=== PATIENT | female | born 1995 | race Caucasian/White ===

== ENCOUNTER 2016-09-28 22:58 | Emergency (ER) | payer SELFPAY ==
[~2016-09-28] VITALS: Ht 149.9 cm; Wt 71.5 kg
[2016-09-28 23:06] VITALS: Ht 149.9 cm; Wt 71.5 kg
[2016-09-29] MEDS ORDERED: CIPR500T4 PO (01:25)
[2016-09-29] MEDS ORDERED: ELEC100080 PO (01:26)
--- NOTE | 2016-09-29 01:30 | ERD ---
ER Documentation Chief Complaint Date/Time DATE: 09/29/16 TIME: 01:28 Chief Complaint abdominal pain with N/V/D and chills x 1 week. HPI This is a 21-year-old female presents to the ER with nausea vomiting and diarrhea for the last week. Nausea and vomiting have resolved and patient now only has diarrhea. Patient was feeling better however today she decided to have a burrito which she is on it and she got diarrhea again. Patient denies any fevers or chills patient denies any urinary frequency or dysuria. Her mom recently began to feel the same symptoms her daughter has. ROS 12 point review of systems was done, all negative except per HPI. Medications Home Meds Active Scripts Electrolyte,Oral (Pedialyte) 1,000 Ml Solution, 100 ML PO Q6 Y for DIARRHEA for 3 Days, ML Prov:DANIELA DELA CRUZ 09/29/16 Ciprofloxacin Hcl* (Ciprofloxacin Hcl*) 500 Mg Tablet, 500 MG PO BID for 3 Days , TAB Prov:DANIELA DELA CRUZ 09/29/16 Reported Medications [None] No Conflict Check 12/30/10 Allergies Allergies: Coded Allergies: No Known Allergies (Verified Allergy, Mild, 12/30/10) PMhx/Soc Medical and Surgical Hx: pt denies Medical Hx, pt denies Surgical Hx History of Surgery: No Anesthesia Reaction: No Hx Neurological Disorder: No Hx Respiratory Disorders: No Hx Cardiac Disorders: No Hx Psychiatric Problems: No Hx Miscellaneous Medical Probl: No Hx Alcohol Use: Yes (SOCIALLY) Hx Substance Use: No Hx Tobacco Use: No Smoking Status: Never smoker Physical Exam Vitals Vital Signs Date Time Temp Pulse Resp B/P Pulse Ox O2 Delivery O2 Flow Rate FiO2 09/28/16 23:06 98.1 78 18 127/75 99 Physical Exam GENERAL: The patient is well-developed, well-nourished, in no acute distress. NECK: Cervical spine is non tender with no step off. Supple, no nuchal rigidity HEENT: Atraumatic. Pupils equal, round and reactive to light. Extraocular muscles are grossly intact. Conjunctivae pink, no discharge. The oropharynx is clear with no erythema or exudates and the mucosa is moist. No signs of dehydration. RESPIRATORY: Clear to auscultation bilaterally. There are no rales, wheezes or rhonchi. HEART: Regular rate and rhythm. No murmurs, clicks, rubs or gallops. ABDOMEN: Soft, nontender, nondistended. Active bowel sounds in all 4 quadrants. No rebounding or guarding. Negative McBurney point tenderness. NEUROLOGIC: Alert and oriented. SKIN: There is no rash. The skin is warm and dry. Normal capillary refill. Procedures/MDM Differential Diagnosis includes but is not limited to; Acute gastroenteritis, small bowel obstruction, appendicitis, DKA, ICH, meningitis. This is likely gastroenteritis. Patient appears well hydrated. He has patient has had symptoms for a week now she will be given Cipro to prophylactically treat against any bacterial infection. Clinical suspicion for infectious etiology such as meningitis is low as patient does not appear toxic. Clinical suspicion for acute abdomen is low as physical examination is benign. Plan was discussed with patient they understand agree. Patient needs to follow up with PCP within 1-2 days, or return to ER if symptoms worsen. Departure Diagnosis: Primary Impression: Nausea vomiting and diarrhea Condition: Stable Patient Instructions: Gastroenteritis, Bacterial (Child) (Adult) DANIELA DELA CRUZ Sep 29, 2016 01:30
== END 2016-09-29 02:16 | disposition home or self-care (01) ==
LOC: FTE 22:58
DX: R11.2 Nausea with vomiting, unspecified (principal)
CPT/HCPCS: 99283